=== PATIENT | female | born 1990 | race Caucasian/White ===

== ENCOUNTER 2018-03-03 17:59 | Emergency (ER) | payer SELFPAY ==
[~2018-03-03] VITALS: Ht 162.6 cm; Wt 68.0 kg
[2018-03-03] MEDS ORDERED: LACTATED RINGERS 1,000 ML IV ONE ×2 (18:18→19:48)
--- NOTE | 2018-03-03 18:25 | ED General ---
General Stated Complaint: SEIZURE Source of Information: Patient (VERY LIMITED HISTORIAN--BELLIGERENT, CURSING, ETC. ), Other (MALE S.O. WITH PT DOES MOST OF TALKING FOR PT, BUT HIS SPEECH IS ALSO VERY ERRATIC, TALKS VERY RAPIDLY, SLIGHTLY MUMBLED) History of Present Illness Date Seen by Provider: Mar 03, 2018 Time Seen by Provider: 17:50 Initial Comments PT ARRIVES VIA EMS, ALONG WITH [place] [employer] AND MALE S.O. PT AND MALE S.O. ARE BOTH HOMELESS AND HAVE BEEN "RIDING THE RAILS" ON TRAINS ALL OVER [place] FOR AT LEAST 10 YEARS MALE S.O. STATES THEY STARTED IN [place] THIS MORNING, THEN TO [place], [place], THEN TO [place] AND NOW HERE HE REPORTS THAT PT HAD "SEIZURES EVERY 5-10 MINUTES FOR 45 MINUTES TO AN HOUR" HE STATES HE WENT FOR HELP AND WHEN HE CAME BACK SHE WAS STILL IN SAME POSITION , DOES NOT THINK SHE INJURED HERSELF PT STATES SHE DID NOT INJURE HERSELF AND DENIES PAIN ANYWHERE EMS REPORT THAT PT WAS POSSIBLY A LITTLE POST -ICTAL WHEN THEY ARRIVED--SHE APPEARED TO BE ASLEEP, BUT THEN QUICKLY WAKENED AND THEN DID NOT APPEAR POST ICTAL AT ALL--CURSING, BELLIGERENT, ETC. . PT WAS NOT CONFUSED, SPEECH WAS CLEAR , AND HAD NO COMPLAINTS PT HAS HISTORY OF SEIZURES AND TAKES KEPPRA 500 MG BID AND LORAZEPAM 0.5 MG-- MALE S.O. STATES THEY JUST GO FROM ER TO ER ALL OVER THE [place] AND GET REFILLS ON MEDICATIONS HE STATES LAST SEIZURE THAT SHE HAD WAS 02/09/18 AND WAS IN [place], [place]. --- RX'S FOR KEPPRA AND LORAZEPAM WERE GIVEN AND PT RECEIVED "COUPON" FROM HOSPITAL TO GET THE MEDICATIONS GIVEN TO THEM. PT IS ACTIVE ALCOHOLIC AND DRINKS AT LEAST 1/2 LITER OF HARD LIQUOR/DAY--HE STATES SHE WILL START SHAKING AND HAVE SEIZURES IF SHE DRINKS LESS THAT 400 ML/ DAY--HE STATES THAT IS HOW MUCH SHE HAS HAD TODAY HE ALSO STATES SHE HAS "PSYCH ISSUES" AND HAS HALLUCINATIONS AND PSYCHOSIS, BUT IS NOT ON MEDICATION FOR THEM--THESE ARE ALSO LONG STANDING AND NO DIFFERENT TODAY HE REPORTS THAT SHE IS HALLUCINATING NOW--PT DOES NOT GIVE ANY INDICATION AT THIS TIME OF HALLUCINATIONS, AND DOES NOT APPEAR TRULY PSYCHOTIC, JUST BELLIGERENT PT DENIES ANY RECENT ILLNESS PT AND MALE S.O. DENY ANY MISSED DOSES OF MEDICATIONS PT IS YELLING AND CURSING ON ARRIVAL AND IS EXTREMELY UNCOOPERATIVE AND KEEPS YELLING AT THE POLICE ( WHO ARE SIMPLY ACCOMPANYING EMS INTO ER, AND ARE STANDING AT THE DOORWAY OF THE ROOM, AND HAVE MADE NO PHYSICAL CONTACT WITH PT) , SCREAMING "WHY ARE THEY HERE?" --PT CALMS SIGNIFICANTLY WHEN POLICE STEP OUT OF THE DOORWAY, AWAY FROM HER VIEW. Allergies and Home Medications Allergies Coded Allergies: No Known Drug Allergies (Unverified , 03/03/18) Patient Home Medication List Home Medication List Reviewed: Yes Review of Systems Review of Systems Constitutional: no symptoms reported Respiratory: no symptoms reported Cardiovascular: no symptoms reported Gastrointestinal: no symptoms reported Genitourinary: no symptoms reported : No (LMP--1-2 MONTHS AGO, ONLY HAS 2-3 PERIODS A YEAR, NO CONTROL) Musculoskeletal: no symptoms reported Skin: no symptoms reported Psychiatric/Neurological: See HPI Hematologic/Lymphatic: No Symptoms Reported Immunological/Allergic: no symptoms reported Past [id number] Hx Patient Social History Alcohol Use: Regular Use (AT LEAST 1/2 OF A FIFTH / DAY) Recreational Drug Use: No (DENIES ) Smoking Status: Current Everyday Smoker (1 PPD) Type Used: Cigarettes Past Medical History Surgeries: No Respiratory: No Cardiac: No Neurological: Yes (SUSPECT ALCOHOL-RELATED SEIZURES) Seizure Disorder Female Reproductive Disorders: Menstrual Problems Genitourinary: No Gastrointestinal: No Musculoskeletal: No Endocrine: No HEENT: No Cancer: No Psychosocial: Yes ("PSYCHOSIS" --NO DETAILS OF SPECIFIC DX, BUT ALSO REPORTED TO HAVE "HALLUCINATIONS" PER MALE S.O. ALCOHOLISM. ) Physical Exam Vital Signs Vital Signs - First Documented 03/03/18 18:02 Temp 97.9 Pulse 78 Resp 18 B/P (MAP) 116/84 (95) Pulse Ox 98 O2 Delivery Room Air Capillary Refill : Height, Weight, BMI Height: '" Weight: lbs. oz. kg; BMI Method: General Appearance: Other (EXTREMELY MALODOROUS, FILTHY, VERY UNKEMPT. BEHAVIOR ON ARRIVAL NOTED ABOVE. ) HEENT: PERRL/EOMI Neck: Full Range of Motion, Normal Inspection, Non Tender, Supple Respiratory: Chest Non Tender, Normal Breath Sounds, No Accessory Muscle Use, No Respiratory Distress Cardiovascular: Regular Rate, Rhythm, No Edema, No Murmur, Normal Peripheral Pulses Gastrointestinal: Soft Back: Normal Inspection Extremity: Normal Range of Motion, No Pedal Edema Neurologic/Psychiatric: Alert, Oriented x3, No Motor/Sensory Deficits, toll line repairer II- XII Norm as Tested, Other (BEHAVIOR NOTED ABOVE. NO POST -ICTAL SYMPTOMS ) Skin: Normal Color, Warm/Dry, Tattoos/Piercings (EXTENSIVE TATTOOS; NO ACUTE TRAUMA NOTED ANYWHERE. ) Progress/Results/Core Measures Suspected Sepsis SIRS Temperature: Pulse: Respiratory Rate: Laboratory Tests 03/03/18 18:41: White Blood Count 4.4 Blood Pressure / Mean: Laboratory Tests 03/03/18 18:41: Creatinine 0.64, Platelet Count 140, Total Bilirubin 0.3 03/03/18 18:50: Results/Orders Lab Results Laboratory Tests Test 03/03/18 18:41 03/03/18 18:50 03/03/18 19:00 Range/Units White Blood Count 4.4 4.3-11.0 10^3/uL Red Blood Count 4.34 L 4.35-5.85 10^6/uL Hemoglobin 14.7 11.5-16.0 G/DL Hematocrit 42 35-52 % Mean Corpuscular Volume 98 80-99 FL Mean Corpuscular Hemoglobin 34 25-34 PG Mean Corpuscular Hemoglobin Concent 35 32-36 G/DL Red Cell Distribution Width 12.4 10.0-14.5 % Platelet Count 140 130-400 10^3/uL Mean Platelet Volume 9.6 7.4-10.4 FL Neutrophils (%) (Auto) 38 L 42-75 % Lymphocytes (%) (Auto) 49 H 12-44 % Monocytes (%) (Auto) 11 0-12 % Eosinophils (%) (Auto) 1 0-10 % Basophils (%) (Auto) 1 0-10 % Neutrophils # (Auto) 1.7 L 1.8-7.8 X 10^3 Lymphocytes # (Auto) 2.2 1.0-4.0 X 10^3 Monocytes # (Auto) 0.5 0.0-1.0 X 10^3 Eosinophils # (Auto) 0.0 0.0-0.3 10^3/uL Basophils # (Auto) 0.1 0.0-0.1 10^3/uL Sodium Level 143 135-145 MMOL/L Potassium Level 4.5 3.6-5.0 MMOL/L Chloride Level 106 98-107 MMOL/L Carbon Dioxide Level 18 L 21-32 MMOL/L Anion Gap 19 H 5-14 MMOL/L Blood Urea Nitrogen 6 L 7-18 MG/DL Creatinine 0.64 0.60-1.30 MG/DL Estimat Glomerular Filtration Rate > 60 BUN/Creatinine Ratio 9 Glucose Level 87 70-105 MG/DL Calcium Level 8.8 8.5-10.1 MG/DL Corrected Calcium 8.5-10.1 MG/DL Magnesium Level 2.5 H 1.8-2.4 MG/DL Total Bilirubin 0.3 0.1-1.0 MG/DL Aspartate Amino Transf (AST/SGOT) 226 H 5-34 U/L Alanine Aminotransferase (ALT/SGPT) 90 H 0-55 U/L Alkaline Phosphatase 94 40-136 U/L Total Creatine Kinase 124 29-168 U/L Creatine Kinase MB 1.5 <6.6 NG/ML Myoglobin 46.5 10.0-92.0 NG/ML Total Protein 8.7 H 6.4-8.2 GM/DL Albumin 4.6 H 3.2-4.5 GM/DL TSH [place] Testing 1.27 0.35-4.94 UIU/ML Serum Test, Qualitative NEGATIVE NEGATIVE Acetaminophen Level < 10 L 10-30 UG/ML Serum Alcohol 396 *H <10 MG/DL Urine Color YELLOW Urine Clarity CLEAR Urine pH 6.5 5-9 Urine Specific [place] 1.010 L 1.016-1.022 Urine Protein NEGATIVE NEGATIVE Urine Glucose (UA) NEGATIVE NEGATIVE Urine Ketones NEGATIVE NEGATIVE Urine Nitrite NEGATIVE NEGATIVE Urine Bilirubin NEGATIVE NEGATIVE Urine Urobilinogen 1 NORMAL MG/DL Urine Leukocyte Esterase 1+ H NEGATIVE Urine RBC (Auto) 1+ H NEGATIVE Urine RBC RARE /HPF Urine WBC RARE /HPF Urine Squamous Epithelial Cells 5-10 /HPF Urine Crystals NONE /LPF Urine Bacteria TRACE /HPF Urine Casts NONE /LPF Urine Mucus NEGATIVE /LPF Urine Other FEW SPERM H /HPF Urine Culture Indicated NO Urine Opiates Screen NEGATIVE NEGATIVE Urine Oxycodone Screen NEGATIVE NEGATIVE Urine Methadone Screen NEGATIVE NEGATIVE Urine Propoxyphene Screen NEGATIVE NEGATIVE Urine Barbiturates Screen NEGATIVE NEGATIVE Ur Tricyclic Antidepressants Screen NEGATIVE NEGATIVE Urine Phencyclidine Screen NEGATIVE NEGATIVE Urine Amphetamines Screen NEGATIVE NEGATIVE Urine Methamphetamines Screen NEGATIVE NEGATIVE Urine Benzodiazepines Screen NEGATIVE NEGATIVE Urine Cocaine Screen NEGATIVE NEGATIVE Urine Cannabinoids Screen NEGATIVE NEGATIVE My Orders Orders - ANSELMO FISHMAN DO Saline Lock/Iv-Start (03/03/18 18:18) Ekg Tracing (03/03/18 18:18) Monitor-Rhythm Ecg Trace Only (03/03/18 18:18) Acetaminophen (03/03/18 18:18) Alcohol (03/03/18 18:18) Cbc With Automated Diff (03/03/18 18:18) Comprehensive Metabolic Panel (03/03/18 18:18) Creatine Kinase (03/03/18 18:18) Creatine Kinase Mb (03/03/18 18:18) Drug Screen Stat (Urine) (03/03/18 18:18) Hcg,Qualitative Serum (03/03/18 18:18) Magnesium (03/03/18 18:18) Protime With Inr (03/03/18 18:18) Partial Thromboplastin Time (03/03/18 18:18) Thyroid Analyzer (03/03/18 18:18) Ua Culture If Indicated (03/03/18 18:18) Myoglobin Serum (03/03/18 18:18) Ct Head Wo (03/03/18 18:18) Saline Lock/Iv-Start (03/03/18 18:18) Lactated Ringers (Lr 1000 Ml Iv Solution (03/03/18 18:18) Levetiracetam Injection (Keppra Injectio (03/03/18 18:30) Saline Lock/Iv-Start (03/03/18 19:48) Lactated Ringers (Lr 1000 Ml Iv Solution (03/03/18 19:48) Medications Given in ED Current Medications Medications Dose Ordered Sig/Ayaz Route Start Time Stop Time Status Last Admin Dose Admin Lactated Ringer's 1,000 ml @ 0 mls/hr Q0M ONCE IV 03/03/18 18:18 03/03/18 18:21 DC 03/03/18 19:00 0 MLS/HR Vital Signs/I&O 03/03/18 18:02 Temp 97.9 Pulse 78 Resp 18 B/P (MAP) 116/84 (95) Pulse Ox 98 O2 Delivery Room Air Capillary Refill : Progress Note : Progress Note PT "FREAKED OUT" WHEN TRYING TO DO A CT, AND PT REFUSED TO HAVE IT DONE-- REPORTEDLY DUE TO "ENCLOSED SPACE" AND "WANTS SOMETHING TO CALM HER DOWN" --PT CALMED SOON SHE WAS OUT OF THE CT ROOM, AND ADVISED HER THAT I WOULD NOT BE GIVING HER ANY ANXIETY MEDICATION AT THIS TIME. SHE CONTINUES TO REFUSE CT NO SEIZURES IN ER NO EVIDENCE OF ACTUAL PSYCHOSIS OR HALLUCINATIONS DURING ER STAY--JUST BELLIGERENT BEHAVIOR, AND PT REQUIRED TO BE SUBDUED/HELD DOWN BY HER MALE S.O. A FEW TIMES DURING ER STAY. HE LAID ON THE ER CART WITH HER FOR MOST OF THE ER STAY WELL. NO SUICIDAL OR HOMICIDAL IDEATIONS DURING ER STAY NO POST ICTAL SYMPTOMS DURING ER STAY SPEECH CLEAR AND GAIT STEADY AT ALL TIMES DURING ER STAY ON RETURN FROM CT, NOW WANT "SOMETHING TO HELP HER SLEEP" --I ADVISED I WOULD NOT GIVE HER ANYTHING OTHER THAN BENADRYL, AND THEY DECLINED. I ADVISED THEM SHE COULD TAKE 1 LORAZEPAM TONIGHT FOR SLEEP--NOW REPORT SHE IS "OUT" --I ADVISED THEM I WOULD NOT BE REFILLING ALSO DISCUSSED THAT PT DID NOT MEET CRITERIA FOR ADMIT TO HOSPITAL OR PSYCH UNIT. PT BECOME BELLIGERENT WHEN I ADVISED THEM I WOULD NOT BE GIVING HER MEDICATIONS FOR SLEEP OR HER CHRONIC PSYCH ISSUES AND DEMANDING TO LEAVE. PT STATES SHE IS FINE. PT AND MALE S.O. ADVISED THAT SHE NEEDED TO STAY IN ONE TOWN WHERE SHE COULD RECEIVE ONGOING CARE BY PRIMARY CARE, NEUROLOGY AND PSYCHIATRY. THEY INDICATE THEY HAVE NO INTENTION OF DOING THAT. ECG Initial ECG Impression Date: Mar 03, 2018 Initial ECG Impression Time: 18:18 Initial ECG Rate: 96 Initial ECG Rhythm: Normal Sinus Initial ECG Comparisson: No Previous ECG Available Departure Impression Primary Impression: REPORTED SEIZURES WITH HISTORY OF SEIZURES Additional Impression: ALCOHOLISM Disposition: 01 HOME, SELF-CARE Condition: Stable Departure-Patient Inst. Referrals: UNKNOWN (PCP/Family) Primary Care Physician Patient Instructions: ALCOHOL AND SUBSTANCE ABUSE, Alcohol Abuse and Alcoholism (DC), Seizures, Adult (DC) Add. Discharge Instructions: CONTINUE YOUR CURRENT MEDICATIONS PRESCRIBED ESTABLISH WITH A DOCTOR SOMEWHERE FOR FURTHER CARE ANSELMO FISHMAN DO Mar 03, 2018 18:25
[2018-03-03] MEDS ORDERED: LEVETIRACETAM INJECTION 1,000 MG in NS (IVPB) 100 ML IV SCH (18:30)
[2018-03-03 18:48] LABS: BASOPHILS # (AUTO) 0.1 10^3/uL (0.0-0.1); BASOPHILS % (AUTO) 1 % (0-10); EOSINOPHILS % (AUTO) 1 % (0-10); HEMATOCRIT 42 % (35-52); HEMOGLOBIN 14.7 G/DL (11.5-16.0); LYMPHOCYTES # (AUTO) 2.2 X 10^3 (1.0-4.0); LYMPHOCYTES % (AUTO) 49 % (12-44); MEAN CORPUSCULAR HEMOGLOBIN 34 PG (25-34); MEAN CORPUSCULAR HGB CONC 35 G/DL (32-36); MEAN CORPUSCULAR VOLUME 98 FL (80-99); MEAN PLATELET VOLUME 9.6 FL (7.4-10.4); MONOCYTES # (AUTO) 0.5 X 10^3 (0.0-1.0); MONOCYTES % (AUTO) 11 % (0-12); NEUTROPHILS # (AUTO) 1.7 X 10^3 (1.8-7.8); NEUTROPHILS % (AUTO) 38 % (42-75); PLATELET COUNT 140 10^3/uL (130-400); RED BLOOD COUNT 4.34 10^6/uL (4.35-5.85); RED CELL DISTRIBUTION WIDTH 12.4 % (10.0-14.5); WHITE BLOOD COUNT 4.4 10^3/uL (4.3-11.0)
[2018-03-03 19:06] LABS: ALANINE AMINOTRANSFERASE 90 U/L (0-55); ALBUMIN 4.6 GM/DL (3.2-4.5); ALKALINE PHOSPHATASE 94 U/L (40-136); BILIRUBIN,TOTAL 0.3 MG/DL (0.1-1.0); BUN/CREATININE RATIO 9; CALCIUM 8.8 MG/DL (8.5-10.1); CARBON DIOXIDE 18 MMOL/L (21-32); CHLORIDE 106 MMOL/L (98-107); CREATINE KINASE 124 U/L (29-168); CREATININE SERUM 0.64 MG/DL (0.60-1.30); GFR ESTIMATED > 60; GLUCOSE 87 MG/DL (70-105); MAGNESIUM 2.5 MG/DL (1.8-2.4); POTASSIUM 4.5 MMOL/L (3.6-5.0); SODIUM 143 MMOL/L (135-145); TOTAL PROTEIN 8.7 GM/DL (6.4-8.2)
[2018-03-03 19:12] LABS: ACETAMINOPHEN < 10 UG/ML (10-30)
[2018-03-03 19:26] LABS: CREATINE KINASE MB 1.5 NG/ML (<6.6); MYOGLOBIN SERUM 46.5 NG/ML (10.0-92.0); TSH (THYROID ANALYZER) 1.27 UIU/ML (0.35-4.94)
[2018-03-03 20:09] LABS: BILIRUBIN,URINE NEGATIVE (NEGATIVE); CLARITY,URINE CLEAR; COLOR,URINE YELLOW; GLUCOSE, URINE (UA) NEGATIVE (NEGATIVE); KETONES,URINE NEGATIVE (NEGATIVE); LEUKOCYTE ESTERASE ,URINE 1+ (NEGATIVE); NITRITE,URINE NEGATIVE (NEGATIVE); PH,URINE 6.5 (5-9); PROTEIN,URINE NEGATIVE (NEGATIVE); UROBILINOGEN,URINE 1 MG/DL (NORMAL)
[2018-03-03 20:23] LABS: BACTERIA,URINE TRACE /HPF; RBC,URINE RARE /HPF; URINE OTHER FEW SPERM /HPF; WBC,URINE RARE /HPF
[2018-03-03 20:24] LABS: AMPHETAMINE SCREEN, URINE NEGATIVE (NEGATIVE); BARBITURATE SCREEN URINE NEGATIVE (NEGATIVE); BENZODIAZEPINES SCREEN URINE NEGATIVE (NEGATIVE); CANNABINOID SCREEN, URINE NEGATIVE (NEGATIVE); COCAINE SCREEN URINE NEGATIVE (NEGATIVE); METHADONE STAT NEGATIVE (NEGATIVE); METHAMPHETAMINE SCREEN URINE S NEGATIVE (NEGATIVE); OPIATE SCREEN URINE NEGATIVE (NEGATIVE); OXYCODONE STAT NEGATIVE (NEGATIVE); PROPOXYPHENE STAT NEGATIVE (NEGATIVE); TRICYCLIC ANTIDEPRESSANTS SCRE NEGATIVE (NEGATIVE)
[2018-03-03 20:48] VITALS: BP 0/0
== END 2018-03-03 20:47 | disposition home or self-care (01) ==
LOC: EDBD 18:00 → ER 18:00
DX: G40.909 Epilepsy, unspecified, not intractable, without status epilepticus (principal); F10.20 Alcohol dependence, uncomplicated; F17.210 Nicotine dependence, cigarettes, uncomplicated
CPT/HCPCS: 36415; 80053; 80306; 80320; 80329; 81000; 82550; 82553; 83735; 83874; 84443; 84703; 85025; 93041; 96361; 96365